=== PATIENT | male | born 1990 | race African-American/Black ===

== ENCOUNTER → 2019-05-01 | Outpatient (CLI) | payer OTHER ==
[~2019-05-01] MED LIST: ADV250INH INH; ASTE137S; BENZ5TA PO; CELE10TA PO; LITH300C PO; LITH450T PO; MINI2CAP PO; PRAZ1CAP PO; REME30TA PO; RISP1TAB3 PO; SERO400T PO; SERO400T3 PO; STRA80CA PO; TRIL600T PO; ZANT150T PO
[2019-05-02 10:10] LABS: HIV 1&2 SCREEN CENTAUR NEGATIVE (NEGATIVE)
[2019-05-04 00:09] LABS: HSV IgM TYPES 1&2 <0.91 Ratio (0.00-0.90)
== END ==
LOC: M WUC 17:07
PROVIDERS: ATTEND Physician Assistant
DX: Z20.2 Contact with and (suspected) exposure to infections with a predominantly sexual mode of transmission (principal)

== ENCOUNTER → 2019-05-01 | Outpatient (REF) | payer OTHER ==
[2019-05-01 22:46] LABS: CHLAMYDIA DNA AMPLIFICATION NEGATIVE (NEGATIVE); GC DNA AMPLIFICATION NEGATIVE (NEGATIVE)
== END ==
LOC: M LAB REF 19:23
PROVIDERS: ATTEND Physician Assistant
DX: Z20.2 Contact with and (suspected) exposure to infections with a predominantly sexual mode of transmission (principal)

== ENCOUNTER 2019-08-22 13:55 | Emergency (ER) | payer OTHER ==
[~2019-08-22] VITALS: Ht 175.3 cm; Wt 68.2 kg
[2019-08-22 13:56] VITALS: BP 128/71
== END 2019-08-22 16:46 | disposition home or self-care (01) ==
LOC: M ED 13:55
DX: Z48.02 Encounter for removal of sutures (principal); J45.909 Unspecified asthma, uncomplicated; M54.9 Dorsalgia, unspecified; G89.29 Other chronic pain; K21.9 Gastro-esophageal reflux disease without esophagitis; Z88.5 Allergy status to narcotic agent; Z98.890 Other specified postprocedural states; Z87.891 Personal history of nicotine dependence

== ENCOUNTER 2020-10-15 08:33 | Emergency (ER) | payer OTHER ==
[~2020-10-15] VITALS: Ht 172.7 cm; Wt 65.1 kg
[2020-10-15 08:35] VITALS: BP 134/66
== END 2020-10-15 09:49 | disposition left against medical advice (07) ==
LOC: M ED 08:33
DX: Z53.21 Procedure and treatment not carried out due to patient leaving prior to being seen by health care provider (principal)

== ENCOUNTER → 2023-07-18 | Outpatient (REF) | LOC: M LAB 11:43 | PROVIDERS: ATTEND Nurse Practitioner Adult Health | DX: Z02.89 Encounter for other administrative examinations (principal) ==